=== PATIENT | male | born 1980 | race African-American/Black ===

== ENCOUNTER 2021-06-15 23:00 | Emergency (ER) | payer MEDICAID ==
[~2021-06-15] VITALS: Ht 170.2 cm; Wt 101.0 kg
[~2021-06-15 23:00] MED LIST: FAMO-135 MT; METF-416 PO; ONDA4TAB5 MT
[2021-06-16] MEDS ORDERED: INSULIN REGULAR (HUMULIN R) UD 100 UNITS/ML SYR SUBCUT ONE (01:30)
[2021-06-16] MEDS ORDERED: SODIUM CHLORIDE 0.9% 1,000 ML IV ONE ×2 (01:30→03:45)
[2021-06-16 02:40] LABS: EOSINOPHILS % 2.4 % (0.0-5.0); HEMATOCRIT. 47.8 % (42.0-52.0); HEMOGLOBIN. 14.9 g/dL (14.0-18.0); LYMPHOCYTES % 23.3 % (20.0-50.0); MEAN CORPUSCULAR HEMOGLOBIN 22.2 pg (28.0-32.0); MEAN CORPUSCULAR VOLUME 71.5 fL (80.0-94.0); MEAN PLATELET VOLUME 9.5 fl (7.4-10.4); MONOCYTES % 7.5 % (2.0-8.0); NEUTROPHILS % 65.8 % (40.0-76.0); PLATELET 246 x1000/uL (130-400); RED BLOOD CELL COUNT 6.68 mill/uL (4.7-6.1); RED CELL DISTRIBUTION WIDTH 14.8 % (11.6-14.6)
[2021-06-16 02:45] LABS: CHLORIDE 96 mEq/L (98-107)
[2021-06-16] MEDS ORDERED: INSULIN REGULAR (HUMULIN R) 300UNITS/3ML VIAL SUBCUT NR (02:45)
[2021-06-16 02:57] LABS: BETA HYDROXYBUTYRATE 2.2 mMol/L (0.0-0.3)
[2021-06-16 03:17] LABS: CLARITY URINE CLEAR (CLEAR); COLOR URINE YELLOW (YELLOW); KETONES URINE 2+ (NEGATIVE); LEUKOCYTE ESTERASE URINE NEGATIVE (NEGATIVE); NITRITE URINE NEGATIVE (NEGATIVE); OCCULT BLOOD URINE NEGATIVE (NEGATIVE); PROTEIN URINE NEGATIVE (NEGATIVE); SPECIFIC GRAVITY URINE 1.038 (1.005-1.030); UROBILINOGEN URINE 0.2 E.U./dL (0.2-1.0)
[2021-06-16] MEDS ORDERED: INSULIN REGULAR (HUMULIN R) UD 100 UNITS/ML SYR IV ONE (03:45)
[2021-06-16] MEDS ORDERED: INSULIN REGULAR (HUMULIN R) 300UNITS/3ML VIAL IV NR (04:00)
[2021-06-16 05:00] VITALS: BP 132/81
== END 2021-06-16 05:29 | disposition home or self-care (01) ==
LOC: ER 23:00
DX: E11.65 Type 2 diabetes mellitus with hyperglycemia (principal); F12.10 Cannabis abuse, uncomplicated; J45.909 Unspecified asthma, uncomplicated; Z88.0 Allergy status to penicillin
CPT/HCPCS: 36415; 80053; 81003; 82010; 82962; 83690; 85025; 96361; 96372; 96374; 99284; J1815; J7030

== ENCOUNTER 2023-02-01 00:11 | Emergency (ER) | payer MEDICAID, OTHER ==
[~2023-02-01] VITALS: Ht 170.2 cm; Wt 107.0 kg
[2023-02-01 00:35] VITALS: BP 138/95
== END 2023-02-01 05:09 | disposition left against medical advice (07) ==
LOC: ER 00:11
DX: Z53.21 Procedure and treatment not carried out due to patient leaving prior to being seen by health care provider (principal)
CPT/HCPCS: 71045; 82962; 99281; 99283

== ENCOUNTER 2024-01-22 00:07 | Emergency (ER) | payer MEDICAID, OTHER ==
[~2024-01-22] VITALS: Ht 172.7 cm; Wt 98.0 kg
[2024-01-22 00:29] VITALS: O2SAT 100
[2024-01-22 00:31] VITALS: BP 122/80; TEMP 99
[2024-01-22] MEDS: IPRATROPIUM BROMIDE (0.02%) 0.5MG/2.5ML NEB HHN STA (01:58)
[2024-01-22] MEDS: ALBUTEROL (0.083%) 2.5MG/3ML NEB HHN STA (01:59)
[2024-01-22 02:00] VITALS: PULSE 76; RESP 18
[2024-01-22] MEDS ORDERED: DEXT30SU17 MT (02:28)
[2024-01-22] MEDS ORDERED: TOPUD MT (02:28)
[2024-01-22] MEDS: METHYLPREDNISOLONE SOD SUCC 125MG/2ML (ACT-O-VIAL) IV STA (02:40)
[2024-01-22] MEDS ORDERED: ALBUTEROL (0.083%) 2.5MG/3ML NEB HHN SCH (03:00)
[2024-01-22 03:04] LABS: CHLORIDE 106 mEq/L (98-107); POTASSIUM 3.6 mEq/L (3.5-5.1); SODIUM 136 mEq/L (136-145)
[2024-01-22 03:05] LABS: CARBON DIOXIDE 22 mEq/L (21-32)
[2024-01-22 03:07] LABS: BASOPHILS % 0.6 % (0.0-2.0); DIFFERENTIAL COMMENT 0; EOSINOPHILS % 1.1 % (0.0-5.0); HEMATOCRIT. 47.7 % (42.0-52.0); HEMOGLOBIN. 15.3 g/dL (14.0-18.0); MEAN CORPUSCULAR HGB CONC 32.1 g/dL (31.0-37.0); MEAN CORPUSCULAR VOLUME 71.6 fL (80.0-94.0); MEAN PLATELET VOLUME 8.4 fl (7.4-10.4); MONOCYTES % 9.5 % (2.0-8.0); NEUTROPHILS % 69.8 % (40.0-76.0); PLATELET 247 x1000/uL (130-400); RED BLOOD CELL COUNT 6.67 mill/uL (4.7-6.1); RED CELL DISTRIBUTION WIDTH 15.8 % (11.6-14.6); WHITE BLOOD COUNT 12.6 x1000/uL (4.5-11.0)
[2024-01-22 03:10] LABS: CREATININE 0.9 mg/dL (0.6-1.3); GLUCOSE 103 mg/dL (70-105); UREA NITROGEN BLOOD 5 mg/dL (9-23)
[2024-01-22 03:43] LABS: TROPONIN I HIGH SENSITIVITY < 4 ng/L (3.0-53)
== END 2024-01-22 04:59 | disposition home or self-care (01) ==
LOC: ER 00:07 → EDBEDREQ 03:22 → ER 04:59
DX: B34.9 Viral infection, unspecified (principal); R05.9 Cough, unspecified; R06.02 Shortness of breath; F12.90 Cannabis use, unspecified, uncomplicated; E11.9 Type 2 diabetes mellitus without complications; Z88.0 Allergy status to penicillin
CPT/HCPCS: 80048; 83880; 85025; 84484; 36415; 71045; 94640; 93005; 96374; 99285; J2930; Z7610 ×3

== ENCOUNTER 2024-03-23 21:06 | Emergency (ER) | payer MEDICAID ==
[~2024-03-23] VITALS: Ht 170.2 cm; Wt 97.0 kg
[~2024-03-23 21:06] MED LIST changes: +DEXT30SU17 MT; +TOPUD MT
[2024-03-23 21:41] VITALS: O2SAT 100
[2024-03-23] MEDS: KETOROLAC 30MG/ML VIAL IM STA (22:35)
[2024-03-23] MEDS: DIAZEPAM 2 MG TABLET PO ONE (22:47)
[2024-03-23] MEDS: INS NPH/REG HM 70-30 10ML VIAL (HUMULIN 70-30) SUBCUT ONE (22:49)
[2024-03-23 23:17] LABS: BASOPHILS % 0.3 % (0.0-2.0); DIFFERENTIAL COMMENT 0; EOSINOPHILS % 2.4 % (0.0-5.0); HEMATOCRIT. 43.2 % (42.0-52.0); HEMOGLOBIN. 13.8 g/dL (14.0-18.0); LYMPHOCYTES % 44.2 % (20.0-50.0); MEAN CORPUSCULAR HGB CONC 32.1 g/dL (31.0-37.0); MEAN CORPUSCULAR VOLUME 71.7 fL (80.0-94.0); MEAN PLATELET VOLUME 8.5 fl (7.4-10.4); MONOCYTES % 7.3 % (2.0-8.0); NEUTROPHILS % 45.8 % (40.0-76.0); PLATELET 269 x1000/uL (130-400); RED BLOOD CELL COUNT 6.02 mill/uL (4.7-6.1); RED CELL DISTRIBUTION WIDTH 15.4 % (11.6-14.6); WHITE BLOOD COUNT 10.1 x1000/uL (4.5-11.0)
[2024-03-23 23:27] LABS: CHLORIDE 105 mEq/L (98-107); POTASSIUM 4.2 mEq/L (3.5-5.1); SODIUM 138 mEq/L (136-145)
[2024-03-23 23:28] LABS: CALCIUM 9.4 mg/dL (8.7-10.4); CARBON DIOXIDE 27 mEq/L (21-32)
[2024-03-23 23:33] LABS: CREATININE 1.3 mg/dL (0.6-1.3); UREA NITROGEN BLOOD 9 mg/dL (9-23)
[2024-03-23 23:37] LABS: BETA HYDROXYBUTYRATE 0.1 mMol/L (0.0-0.3)
[2024-03-23 23:44] LABS: GLUCOSE 293 mg/dL (70-105)
[2024-03-23 23:51] LABS: CLARITY URINE CLEAR (CLEAR); COLOR URINE YELLOW (YELLOW); GLUCOSE URINE 3+ (NEGATIVE); KETONES URINE TRACE (NEGATIVE); LEUKOCYTE ESTERASE URINE NEGATIVE (NEGATIVE); NITRITE URINE NEGATIVE (NEGATIVE); OCCULT BLOOD URINE NEGATIVE (NEGATIVE); PH URINE 5.5 (4.5-8.0); PROTEIN URINE NEGATIVE (NEGATIVE); SPECIFIC GRAVITY URINE 1.048 (1.005-1.030)
[2024-03-23] MEDS ORDERED: CYCL10TA21 MT (23:57)
[2024-03-23] MEDS ORDERED: IBUP-2029 MT (23:57)
[2024-03-24 00:15] VITALS: BP 109/82; PULSE 77; RESP 16; TEMP 98.7
[2024-03-24 01:24] LABS: BACTERIA URINE TRACE; MUCUS URINE 2+ /lpf (NONE/TRACE); RBC URINE 0-2 /hpf (0-2); SQUAMOUS EPITHELIAL CELL URINE 1+ /lpf (RARE/1+); WBC URINE 0-2 /hpf (0-2)
[2024-03-24 01:25] LABS: HYALINE CASTS URINE 0-5 /lpf
== END 2024-03-24 00:19 | disposition home or self-care (01) ==
LOC: ER 21:06
DX: M54.50 Low back pain, unspecified (principal); J45.909 Unspecified asthma, uncomplicated; E11.9 Type 2 diabetes mellitus without complications; F12.10 Cannabis abuse, uncomplicated; Z79.899 Other long term (current) drug therapy; Z88.0 Allergy status to penicillin
CPT/HCPCS: 99284; 80048; 81003; 82010; 82962; 83690; 85025; 36415; 72100; 96372; J1815; J1885

== ENCOUNTER 2025-05-21 14:29 | Emergency (ER) | payer MEDICAID ==
[~2025-05-21] VITALS: Ht 170.2 cm; Wt 91.0 kg
[~2025-05-21 14:29] MED LIST changes: +CYCL10TA21 MT; +IBUP-1455 MT
[2025-05-21 14:38] VITALS: O2SAT 99
[2025-05-21 15:16] LABS: BASOPHILS % 0.3 % (0.0-2.0); EOSINOPHILS % 0.3 % (0.0-5.0); HEMATOCRIT. 46.9 % (42.0-52.0); HEMOGLOBIN. 14.8 g/dL (14.0-18.0); LYMPHOCYTES % 18.6 % (20.0-50.0); MEAN PLATELET VOLUME 8.7 fl (7.4-10.4); MONOCYTES % 7.1 % (2.0-8.0); NEUTROPHILS % 73.7 % (40.0-76.0); PLATELET 288 x1000/uL (130-400); RED BLOOD CELL COUNT 6.51 mill/uL (4.7-6.1); RED CELL DISTRIBUTION WIDTH 15.4 % (11.6-14.6)
[2025-05-21 15:29] LABS: CREATININE 0.9 mg/dL (0.6-1.3)
[2025-05-21 15:30] LABS: TROPONIN I HIGH SENSITIVITY 4 ng/L (3.0-53); UREA NITROGEN BLOOD < 5 mg/dL (9-23)
[2025-05-21 15:31] LABS: ASPARTATE AMINOTRANSFERASE 17 IU/L (<34)
[2025-05-21 15:32] LABS: BILIRUBIN DIRECT 0.2 mg/dL (<=3.0); BILIRUBIN TOTAL 0.6 mg/dL (0.1-1.0); PROTEIN TOTAL 7.2 g/dL (6.0-8.3)
[2025-05-21] MEDS ORDERED: ONDA-239 PO (15:55)
[2025-05-21] MEDS: ONDANSETRON 4MG ODT PO ONE (16:07)
[2025-05-21] MEDS: POTASSIUM CHLORIDE 20MEQ TABLET SR PO SCH (16:07)
[2025-05-21 16:08] VITALS: BP 137/87; PULSE 76; RESP 16; TEMP 36.9; O2SAT 99
== END 2025-05-21 16:09 | disposition home or self-care (01) ==
LOC: ER 14:29
DX: R11.2 Nausea with vomiting, unspecified (principal); E87.6 Hypokalemia; T50.905A Adverse effect of unspecified drugs, medicaments and biological substances, initial encounter; J45.909 Unspecified asthma, uncomplicated; E11.9 Type 2 diabetes mellitus without complications; Z79.4 Long term (current) use of insulin; Z79.899 Other long term (current) drug therapy; Z88.0 Allergy status to penicillin; Y92.89 Other specified places as the place of occurrence of the external cause
CPT/HCPCS: 99283; 80076; 80048; 82962; 83690; 85025; 84484; 36415; Q0162